=== PATIENT | female | born 1985 | race Caucasian/White ===

== ENCOUNTER → 2017-06-14 | Outpatient (CLI) | payer OTHER ==
[2017-06-14 09:46] LABS: BASOPHIL % 0.4 % (0-2); PLATELET COUNT 288 x10^3mcL (130-400)
[2017-06-14 09:50] LABS: RED CELL DISTRIBUTION WIDTH 18.1 % (11.5-14.5)
[2017-06-14 09:52] LABS: rbc morphology (normal/abnorm) ABNORMAL (NORMAL)
[2017-06-14 09:56] LABS: ALKALINE PHOSPHATASE 103 U/L (46-116); ALT/SGPT 42 U/L (14-59); AST/SGOT 33 U/L (15-37); BILIRUBIN TOTAL 0.31 mg/dL (0.20-1.00); CALCIUM 8.3 mg/dL (8.5-10.1); CARBON DIOXIDE 27.1 mmol/L (21-32); CHLORIDE SERUM 106 mmol/L (98-107); CREATININE SERUM 0.7 mg/dL (0.6-1.0); GFR1 > 60 mL/min; GLUCOSE SERUM 111 mg/dL (74-106); POTASSIUM SERUM 4.3 mmol/L (3.5-5.1); SODIUM SERUM 141 mmol/L (136-145); TOTAL PROTEIN, SERUM 7.9 g/dL (6.4-8.2); TRIGLYCERIDES 148 mg/dL (<150)
[2017-06-14 10:14] LABS: ALBUMIN 3.3 g/dL (3.4-5.0); CHOLESTEROL 209 mg/dL (<200); CHOLESTEROL/HDL RATIO 6.3; HDL CHOLESTEROL 33 mg/dL (40-60)
[2017-06-14 14:59] LABS: T3 TOTAL 1.16 ng/mL
[2017-06-14 16:47] LABS: T4(THYROXINE) 8.5 ug/dL (4.7-13.3)
[2017-06-14 17:01] LABS: FREE T4 1.1 ng/dL (0.76-1.46)
== END | disposition home or self-care (01) ==
LOC: US 08:44
PROVIDERS: Family Medicine
PROC: BW40ZZZ Ultrasonography of Abdomen (ICD-10-PCS; principal; 2017-06-14)
DX: Z00.00 Encounter for general adult medical examination without abnormal findings (principal); R10.9 Unspecified abdominal pain
CPT/HCPCS: 84439

== ENCOUNTER 2018-10-26 15:22 | Emergency (ER) | payer OTHER ==
[~2018-10-26] VITALS: Ht 160 cm; Wt 107.0 kg
[2018-10-26 15:29] VITALS: Ht 160 cm; Wt 107.0 kg
[2018-10-26 18:12] LABS: microscopic required? NO
[2018-10-26 18:31] LABS: CALCIUM 8.7 mg/dL (8.5-10.1); CARBON DIOXIDE 25.5 mmol/L (21-32); CHLORIDE SERUM 104 mmol/L (98-107); CREATININE SERUM 0.7 mg/dL (0.6-1.0); GFR1 > 60 mL/min; GLUCOSE SERUM 108 mg/dL (74-106); PLATELET COUNT 314 x10^3mcL (130-400); SODIUM SERUM 139 mmol/L (136-145)
[2018-10-26 18:32] LABS: urine erythrocyte NEGATIVE (NEGATIVE)
[2018-10-26 18:33] LABS: BASOPHIL % 0 % (0-2); RED CELL DISTRIBUTION WIDTH 24.4 % (11.5-14.5)
[2018-10-26 18:36] LABS: ALBUMIN 3.6 g/dL (3.4-5.0); ALKALINE PHOSPHATASE 100 U/L (46-116); ALT/SGPT 19 U/L (14-59); AST/SGOT 14 U/L (15-37); BILIRUBIN TOTAL 0.33 mg/dL (0.20-1.00); HDL CHOLESTEROL 39 mg/dL (40-60); LIPASE 157 IU/L (73-393); TOTAL PROTEIN, SERUM 8.2 g/dL (6.4-8.2); TRIGLYCERIDES 80 mg/dL (<150)
[2018-10-26 18:38] LABS: CHOLESTEROL 209 mg/dL (<200); CHOLESTEROL/HDL RATIO 5.4
[2018-10-26 18:40] LABS: AMPHETAMINE QUAL UR NONE DETECTED (See below)
[2018-10-26 18:43] LABS: FREE T4 1.05 ng/dL (0.76-1.46); FREE THYROXINE INDEX 2.6 ug/dL (1.4-4.5); T4(THYROXINE) 7.8 ug/dL (4.7-13.3)
[2018-10-26 18:44] LABS: T3 TOTAL 1.25 ng/mL
[2018-10-26 19:13] VITALS: BP 137/85
== END 2018-10-26 19:17 | disposition home or self-care (01) ==
LOC: ED 15:22
PROVIDERS: Specialist
DX: R00.2 Palpitations (principal); R07.89 Other chest pain; R20.2 Paresthesia of skin; I10 Essential (primary) hypertension; Z86.2 Personal history of diseases of the blood and blood-forming organs and certain disorders involving the immune mechanism
CPT/HCPCS: 36415; 83880; 84439; J7030; Q0092